=== PATIENT | male | born 1950 | race Caucasian/White ===

== ENCOUNTER 2022-10-14 11:26 | Outpatient (CLI) | payer MEDICARE, SELFPAY | END 2022-10-14 11:27 | disposition home or self-care (01) | LOC: OP CLINIC 11:27 | PROVIDERS: PCP Family Medicine; Visit Provider Internal Medicine Gastroenterology | DX: Z12.11 Encounter for screening for malignant neoplasm of colon (principal); K63.5 Polyp of colon; Z86.010 Personal history of colon polyps | CPT/HCPCS: 45380; 88305; J2250; J3010 ==

== ENCOUNTER 2023-08-16 07:48 | Outpatient (CLI) | payer MEDICARE, SELFPAY | END 2023-08-16 07:49 | disposition home or self-care (01) | LOC: AMB 08-28 18:36 | PROVIDERS: PCP Family Medicine; Visit Provider Family Medicine | DX: R55 Syncope and collapse (principal); R41.82 Altered mental status, unspecified; R47.81 Slurred speech | CPT/HCPCS: A0425; A0427 ==

== ENCOUNTER 2023-08-16 08:28 | Emergency (ER) | payer MEDICARE, SELFPAY ==
[2023-08-16] VITALS (53 sets, daily range): BP systolic 111–236; BP diastolic 51–110; PULSE 42–64; RESP 5–22; TEMP 36.1; O2SAT 58–99
--- NOTE | 2023-08-16 08:37 | CRLHL7_ITS ---
For Patients: As a result of the Century Cures Act, medical imaging exams and procedure reports are released immediately into your electronic medical record. You may view this report before your referring provider. If you have questions, please contact your health care provider. INDICATION: Altered mental status. TECHNIQUE: CT head without contrast. COMPARISON: None. FINDINGS: 5.7 cm (transverse on series 6; image 22) is a cerebellar hematoma with its epicenter in the left cerebellar hemisphere extending across the midline from left to right associated with crowding of the cerebellar tonsils the foramina magnum and effacement of the subarachnoid spaces surrounding the brainstem at the tentorial incisura consistent with central downward and upward herniation, respectively. Intraventricular extension of hemorrhage is seen with blood in the lateral, 3rd and 4th ventricles. Dilatation of the temporal horns is consistent with hydrocephalus. Incidental note is made of complete opacification of the left maxillary sinus with hyperattenuating inspissated secretions. IMPRESSION: Cerebellar hematoma with intraventricular extension complicated by central upward and downward cerebellar herniation and obstructive hydrocephalus. Emergent neurosurgical consultation is recommended. Discussed with Dr. Velasquez at 8:52 a.m. CASING IN LINE SETTER on 08/16/2023. Please note that all CT scans at this facility use dose modulation, iterative reconstruction, and/or weight-based dosing when appropriate to reduce radiation dose to as low as reasonably achievable. Dictated by Torres Knott MD @ 08/16/2023 8:54:32 AM (Electronically Signed)
[2023-08-16 08:39] LABS: Hematocrit 47.3 % (37.0-53.0); Mean Corpuscular HGB Conc 36 gm/dL (32-36); Mean Corpuscular Hemoglobin 30 pg (26-34); Mean Corpuscular Volume 82 fL (80-100); Monocytes Percent Auto 6.5 % (0.0-11.0); Neutrophils Percent Auto 80.8 % (42.0-72.0); Platelet Count* 73 K/uL (140-440); Red Blood Count 5.77 m/uL (4.30-5.90); White Blood Count* 7.11 K/uL (4.50-11.00)
[2023-08-16 08:40] LABS: Basophils Absolute Auto 0.02 K/uL (0.00-0.30); Basophils Percent Auto 0.3 % (0.0-3.0); Eosinophils Absolute Auto 0.14 K/uL (0.00-0.50); Immature Granulocytes Abs Auto 0.03 K/uL (0.00-0.30); Immature Granulocytes Pct Auto 0.4 %
[2023-08-16] MEDS: NICARDIPINE HCL 25 MG in 0.9 % SODIUM CHLORIDE 250 ml 240 ML 50 MG IVPB (08:41)
[2023-08-16 08:42] LABS: Slide Review Reflex No
[2023-08-16 08:55] LABS: Albumin* 4.8 g/dL (3.3-5.0); Chloride* 108 mmol/L (96-114); Partial Thromboplastin Time* 38 Seconds (23-33); Sodium* 138 mmol/L (135-149)
[2023-08-16 08:56] LABS: Potassium* 4.2 mmol/L (3.6-5.1)
[2023-08-16 08:57] LABS: Aspartate Amino Transferase* 38 U/L (12-35); Bilirubin Direct* 0.5 mg/dL (0.0-0.5); Bilirubin Total* 1.5 mg/dL (0.1-1.5); Total Protein* 8.4 g/dL (6.0-8.3)
[2023-08-16 08:58] LABS: Alanine Aminotransferase* 22 U/L (4-50); Alkaline Phosphatase* 127 U/L (40-150); Creatinine* 1.3 mg/dL (0.5-1.5); Estimated Glomerular Filt Rate 58 ml/min
--- NOTE | 2023-08-16 08:58 | ED.NURSE ---
DR Velasquez speaking to cat dog or other pet groomer at [facility].
[2023-08-16 08:59] LABS: Anion Gap 14 mEq/L (7-15); Blood Urea Nitrogen* 37 mg/dL (7-30); Calcium* 9.5 mg/dL (8.4-10.6); Carbon Dioxide* 16 mmol/L (20-32); Glucose* 185 mg/dL (60-115)
[2023-08-16 09:09] LABS: NT Pro B Type NatriureticPept* 668 pg/mL
[2023-08-16] MEDS: SODIUM CHLORIDE IV (09:18)
[2023-08-16 09:29] LABS: INR 1.15 (0.91-1.10); Prothrombin Time 15.4 Seconds
[2023-08-16] MEDS: SUCCINYLCHOLINE 20 MG/ML INJ 100 MG IVP (09:30)
[2023-08-16] MEDS: ETOMIDATE 2 MG/ML inj 20 MG IVP (09:30)
[2023-08-16] MEDS: MIDAZOLAM HCL 1 MG/ML inj 2 MG IVP (09:34)
[2023-08-16] MEDS: fentaNYL 100 MCG/2 ML inj 25 MCG IVP (09:35)
--- NOTE | 2023-08-16 09:44 | ED_ITS ---
HPI - General Adult General Date Seen: 08/16/23 Chief complaint: Neuro Symptoms/Altered Deficit Stated complaint: stroke Time Seen by Provider: 08/16/23 08:30 Source: EMS and RN notes reviewed Mode of arrival: EMS Limitations: altered mental status History of Present Illness HPI narrative: Patient is a 73-year-old male who was brought in by EMS after awakening this morning with significantly slurred speech and decreased level of consciousness. called 911. Medics note of blood sugar of around 170, severe hypertension with systolic blood pressures above 220, patient does have a history of diabetes and hypertension previously. Last known well was last night. Patient was brought in as a stroke code at 8:10 a.m.. He went directly to the CT scanner. He was not able to provide any history although at that time he was responding to simple questions with yes no answers and following commands. Related Data Home Medications Medication Instructions Recorded Confirmed diltiazem HCl 30 mg tablet 30 mg PO 3XD 08/16/23 08/16/23 empagliflozin 25 mg tablet 25 mg PO DAILY 08/16/23 08/16/23 (Jardiance) famotidine 40 mg tablet 40 mg PO DAILY 08/16/23 08/16/23 ferrous sulfate 325 mg (65 mg 325 mg PO DAILY 08/16/23 08/16/23 iron) tablet lisinopril 40 mg tablet 40 mg PO DAILY 08/16/23 08/16/23 nadolol 40 mg tablet 40 mg PO DAILY 08/16/23 08/16/23 Allergies Allergy/AdvReac Type Severity Reaction Status Date / Time No Known Drug Allergies Allergy Verified 08/16/23 08:32 Review of Systems Status of ROS: Reports: unobtainable due to mental status PFSH PFS Social History Smoking Status: Smoker, status unknown How often do you have a drink containing alcohol: never AUDIT-C Alcohol total score: 0 Non-prescribed substance use: declined to answer Exam Narrative: Exam Narrative: Vital signs as noted above. Severe hypertension. In general, a somnolent elderly male. Head: Normocephalic, atraumatic. Eyes: Pupils were about 4 mm and sluggish bilaterally. Not able to assess extraocular movements. ENT: Mucous membranes are moist. Face appears symmetric. Neck: Supple without lymphadenopathy. Heart: Bradycardic and regular. Lungs: Clear bilaterally. No increased work of breathing, crackles or wheezes. Abdomen: Soft and nontender. No organomegaly. Extremities: Well perfused. No edema. No calf tenderness. Pulses intact. Neurologic: Patient on arrival was somnolent but arouses to voice, severely dysarthric to the point that it was difficult understand anything he was saying. Moving all 4 extremities to command. Affect: Not applicable. Skin: Warm and dry. Well perfused. Const: Vital Signs, click to edit/add: Vital Signs - 24 hr 08/16/23 11:27 08/16/23 11:32 08/16/23 11:46 Pulse Rate 46 L 44 L 46 L Respiratory Rate 18 18 17 Blood Pressure 122/55 L 119/55 L 124/55 L Pulse Oximetry 97 98 96 Oxygen Delivery Me thod 08/16/23 12:00 08/16/23 12:15 08/16/23 12:30 Pulse Rate 47 L 49 L 48 L Respiratory Rate 22 21 19 Blood Pressure 126/62 132/57 L 132/58 L Pulse Oximetry 97 97 98 Oxygen Delivery Me thod 08/16/23 12:37 08/16/23 12:47 08/16/23 12:57 Pulse Rate 46 L 47 L 46 L Respiratory Rate 19 18 19 Blood Pressure 127/62 129/57 L 130/60 Pulse Oximetry 99 97 98 Oxygen Delivery Me thod 08/16/23 13:02 08/16/23 13:17 08/16/23 13:27 Pulse Rate 47 L 46 L 46 L Respiratory Rate 21 19 18 Blood Pressure 130/59 L 130/57 L 127/59 L Pulse Oximetry 98 97 97 Oxygen Delivery Me thod 08/16/23 13:32 08/16/23 13:45 08/16/23 14:02 Pulse Rate 46 L 47 L 47 L Respiratory Rate 18 19 19 Blood Pressure 133/61 135/68 140/65 H Pulse Oximetry 98 98 98 Oxygen Delivery Me thod 08/16/23 14:17 08/16/23 14:22 08/16/23 14:27 Pulse Rate 45 L 46 L 47 L Respiratory Rate 20 19 20 Blood Pressure 143/67 H 143/64 H 147/67 H Pulse Oximetry 98 98 98 Oxygen Delivery Me thod 08/16/23 14:30 08/16/23 14:47 08/16/23 15:00 Pulse Rate 49 L 47 L 46 L Respiratory Rate 18 18 17 Blood Pressure 147/68 H 151/69 H 153/70 H Pulse Oximetry 98 98 98 Oxygen Delivery Me thod Intubated 08/16/23 15:02 08/16/23 15:07 Pulse Rate 48 L 42 L Respiratory Rate 8 L 5 L Blood Pressure 153/70 H 190/77 H Pulse Oximetry 97 58 L Oxygen Delivery Me thod Room Air Documenting provider has reviewed patient's vital signs: yes Course Course ED Course: On arrival patient went straight to CT. Noted to have a large cerebellar hemorrhage with intraventricular blood by my review. Nicardipine drip was started for ongoing hypertension. Final radiology read was as follows although I did not have the read until 850, and management decisions were made without it.FINDINGS: 5.7 cm (transverse on series 6; image 22) is a cerebellar hematoma with its epicenter in the left cerebellar hemisphere extending across the midline from left to right associated with crowding of the cerebellar tonsils the foramina magnum and effacement of the subarachnoid spaces surrounding the brainstem at the tentorial incisura consistent with central downward and upward herniation, respectively. Intraventricular extension of hemorrhage is seen with blood in the lateral, 3rd and 4th ventricles. Dilatation of the temporal horns is consistent with hydrocephalus. Incidental note is made of complete opacification of the left maxillary sinus with hyperattenuating inspissated secretions. IMPRESSION: Cerebellar hematoma with intraventricular extension complicated by central upward and downward cerebellar herniation and obstructive hydrocephalus. Emergent neurosurgical consultation is recommended. Discussed with Dr. Velasquez at 8:52 a.m. COAT CHECKER on 08/16/2023. We did page a stroke code, did not hear back from Neurology for probably about 15 minutes, but I did then talk with Dr. Benz who reviewed this CT scan as well. Overall, he felt the hemorrhage would not be survival barring neurosurgical intervention, which he did not think was likely possible. In the 1st 15-20 minutes that the patient was in the ER he deteriorated in terms of mental status, became obtunded, minimal response to pain, toes upgoing. Pupils remained equal and sluggish. Dr. Velasquez spoke with the equipment hire manager and I spoke with the neurosurgeon after that. The equipment hire manager had recommended that we give some 3% saline and also recommended platelets as patient is chronically low in the 60- [id number] range. These were initially ordered, but after I talked with the neurosur zay, who felt that there was no salvage procedure available given rapid deterioration in his mental status, thrombocytopenia, etcetera, I did discontinue the platelets. I had a conversation initially with his around goals of care, he does not have a POLST. She felt that he would want aggressive measures only if there was a good chance of good outcome, so after I talked with the neurosurgeon I discussed all this with her again and recommended we not pursue aggressive measures as it sounds as if this would be outside of his wishes. One of his sons arrived, a 2nd son is an route from [place] and is not going to be here for another hour so. As such, we did decide to intubate the patient in hopes of giving his other son a chance to say goodbye. Family understands that the intubation is temporizing only, and otherwise we are pursuing comfort cares. I did not aggressively manage blood sugar for that reason. His sodium was normal. Procedure note: Patient was preoxygenated and then given 20 mg of etomidate followed by 100 mg of succinylcholine. He was intubated with a 7 and half ET tube, tube placement confirmed by a breath sounds, end-tidal CO2, tube fogging and visualization through the cords with the glide scope. I did not do a chest x-ray as the intubation will be of limited duration. He had equal breath sounds on exam, good oxygenation. Patient remained in the emergency department for several hours, he was intubated while multiple family members and friends came to visit. At around 3:00 p.m., I answered family is remaining questions and they were comfortable with extubation. ET tube was removed without incident, he is breathing spontaneously albeit very slowly, pupils remain equal but unreactive. All medications discontinued with the exception of p.r.n. fentanyl for discomfort. He has not shown any evidence of this since intubation. Patient at 3:34 p.m., bilateral pupils fixed and dilated, no respiratory effort or cardiac activity. Critical care 90 minutes Vital Signs Vital signs: Initial Vital Signs Temperature 96.9 F L 08/16/23 08:30 Temperature Source Temporal Artery Scan 08/16/23 08:30 Pulse Rate 54 L 08/16/23 08:30 Respiratory Rate 12 08/16/23 08:30 Blood Pressure 236/110 H 08/16/23 08:30 Blood Pressure Mean 152 H 08/16/23 08:30 Blood Pressure Position Supine 08/16/23 08:30 Pulse Oximetry 97 08/16/23 08:30 Oxygen Delivery Method Room Air 08/16/23 08:30 Vital Signs Temperature 96.9 F L 08/16/23 08:30 Pulse Rate 54 L 08/16/23 08:30 Respiratory Rate 12 08/16/23 08:30 Blood Pressure 236/110 H 08/16/23 08:30 Pulse Oximetry 97 08/16/23 08:30 Oxygen Delivery Method Room Air 08/16/23 08:30 Temperature 96.9 F L 08/16/23 08:30 Pulse Rate 42 L 08/16/23 15:07 Respiratory Rate 5 L 08/16/23 15:07 Blood Pressure 190/77 H 08/16/23 15:07 Pulse Oximetry 58 L 08/16/23 15:07 Oxygen Delivery Method Room Air 08/16/23 15:02 Fraction of Inspired Oxygen 50 08/16/23 09:57 Medications Administered Medications: Discontinued Medications Generic Name Dose Route Start Last Admin Trade Name Freq PRN Reason Stop Dose Admin Etomidate 20 mg 08/16/23 09:35 08/16/23 09:30 Etomidate 2 Mg/Ml Inj IVP 08/16/23 09:36 20 mg ONCE ONE Administration Fentanyl 25 mcg 08/16/23 09:35 08/16/23 09:35 Fentanyl 100 Mcg/2 Ml Inj IVP 08/16/23 09:36 25 mcg ONCE ONE Administration Nicardipine HCl 25 mg/ Sodium 250 mls @ 50 mls/hr 08/16/23 08:31 08/16/23 13:35 Chloride IVPB Infused .TITRATE PRN Infusion Hypertension Sodium Chloride 150 mls @ 3,000 mls/hr 08/16/23 09:09 08/16/23 10:18 3 % Sodium Chloride 500 Ml IV 08/16/23 09:11 Infused .Q3M EBONY Infusion Midazolam HCl 2 mg 08/16/23 09:35 08/16/23 09:34 Midazolam Hcl 1 Mg/Ml Inj IVP 08/16/23 09:36 2 mg ONCE ONE Administration Succinylcholine Chloride 100 mg 08/16/23 09:35 08/16/23 09:30 Succinylcholine 20 Mg/Ml Inj IVP 08/16/23 09:36 100 mg ONCE ONE Administration Medical Decision Making Lab Data Labs: Lab Results 08/16/23 Range/Units 08:30 WBC 7.11 (4.50-11.00) K/uL RBC 5.77 (4.30-5.90) m/uL Hgb 17.0 (13.5-17.5) gm/dL Hct 47.3 (37.0-53.0) % MCV 82 (80-100) fL MCH 30 (26-34) pg MCHC 36 (32-36) gm/dL RDW Coeff of Yasmine 13.0 (11.5-15.5) % Plt Count 73 L (140-440) K/uL Neut % (Auto) 80.8 H (42.0-72.0) % Lymph % (Auto) 10.0 L (20-44) % [place] % (Auto) 6.5 (0.0-11.0) % Eos % (Auto) 2.0 (0.0-7.0) % Baso % (Auto) 0.3 (0.0-3.0) % Neut # (Auto) 5.70 (1.7-7.0) K/uL Lymph # (Auto) 0.70 L (0.90-2.90) K/uL [place] # (Auto) 0.50 (0.00-0.90) K/UL Eos # (Auto) 0.14 (0.00-0.50) K/uL Baso # (Auto) 0.02 (0.00-0.30) K/uL Abs Immat Gran (auto) 0.03 (0.00-0.30) K/uL Imm/Tot Granulo (auto) 0.4 % INR 1.15 H (0.91-1.10) APTT 38 H (23-33) Seconds Sodium 138 (135-149) mmol/L Potassium 4.2 (3.6-5.1) mmol/L Chloride 108 (96-114) mmol/L Carbon Dioxide 16 L (20-32) mmol/L Anion Gap 14 (7-15) mEq/L BUN 37 H (7-30) mg/dL Creatinine 1.3 (0.5-1.5) mg/dL Estimated GFR 58 ml/min Glucose 185 H (60-115) mg/dL Calcium 9.5 (8.4-10.6) mg/dL Total Bilirubin 1.5 (0.1-1.5) mg/dL Direct Bilirubin 0.5 (0.0-0.5) mg/dL AST 38 H (12-35) U/L ALT 22 (4-50) U/L Alkaline Phosphatase 127 (40-150) U/L NT-Pro-B Natriuret Pep 668 pg/mL Total Protein 8.4 H (6.0-8.3) g/dL Albumin 4.8 (3.3-5.0) g/dL Blood Type O Positive Antibody Screen NEGATIVE Discharge Plan Discharge Clinical Impression: Acute cerebellar hemorrhage Patient Disposition: Date/Time: 08/16/23 15:34
--- NOTE | 2023-08-16 10:50 | ED.NURSE ---
EMS stroke code page: [phone] Stroke Neuro paged @ [phone] Velasquez speaking to tuber machine cutter @[phone]
--- NOTE | 2023-08-16 15:04 | ED.NURSE ---
Pt extubated by Dr. Muñoz. Family at bedside.
--- NOTE | 2023-08-16 23:58 | PC.NURSE ---
eye bank here to harvest eyes.
--- NOTE | 2023-08-17 05:53 | PC.NURSE ---
body picked up by Mehul alvarenga for [employer] license number [id number]. at 0545 on 08/17/23.
== END 2023-08-17 05:54 | disposition expired ==
PROVIDERS: Family Medicine; Emergency Provider Emergency Medicine; PCP Family Medicine
DX: I61.4 Nontraumatic intracerebral hemorrhage in cerebellum (principal)
CPT/HCPCS: 31500; 36415; 70450; 80048; 80076; 83880; 85025; 85610; 85730; 86850; 86900; 86901; 94761; 96365; 96375; 99285; 99291; 99292; J0330; J2250; J3010; J7050; J7131